=== PATIENT | male | born 1985 | race Caucasian/White ===

== ENCOUNTER 2017-01-31 12:45 | Emergency (ER) | payer OTHER ==
[2017-01-31] MEDS ORDERED: DIAZEPAM 5 MG/ML SYRINGE 2 ML ONE (13:15)
[2017-01-31] MEDS ORDERED: KETOROLAC TROMETHAMINE 60 MG/2 ML VIAL ONE (13:15)
--- NOTE | 2017-01-31 14:00 | RAD ---
HISTORY: Back pain radiating down right leg status post lifting injury. Initial encounter. COMPARISON: None Findings: AP and lateral views of the thoracic spine are obtained. Lateral swimmer's view is also obtained at this time. There is no fracture or dislocation. Sagittal alignment is intact. The vertebral bodies and posterior elements are unremarkable. The alignment, discs, and discovertebral relationships are normal. Limited evaluation of the chest is unremarkable. Impression: Normal thoracic spine.
--- NOTE | 2017-01-31 14:00 | RAD ---
HISTORY: Back pain radiating down right leg status post lifting injury. Initial encounter. COMPARISON: None Findings: AP and lateral views of the lumbar spine with AP spot film of the lumbo-sacral junction are obtained. The development and bony structures are normal. There is no fracture, dislocation or destructive lesion. There is straightening and mild reversal the normal lumbar lordosis with kyphosis centered at approximately L2. Findings may be on the basis of muscle spasm. No fracture or dislocation. No significant degenerative changes. The disk spaces and vertebral body heights are well-preserved. The sacrum and sacroiliac joints are normal. IMPRESSION: Alignment is above. Otherwise exam is unremarkable.
== END 2017-01-31 14:38 | disposition home or self-care (01) ==
LOC: ED 12:45
DX: S39.012A Strain of muscle, fascia and tendon of lower back, initial encounter (principal); F17.210 Nicotine dependence, cigarettes, uncomplicated; X50.0XXA Overexertion from strenuous movement or load, initial encounter; Y92.009 Unspecified place in unspecified non-institutional (private) residence as the place of occurrence of the external cause
CPT/HCPCS: 72100; 72072; 99283 ×2; 96372; J1885; J3360